=== PATIENT | male | born 1935 | race Caucasian/White ===

== ENCOUNTER 2017-09-02 09:02 | Inpatient (IN) | payer MEDICARE, MEDICAID ==
[~2017-09-02] VITALS: Ht 172.7 cm; Wt 78.8 kg
[~2017-09-02 09:02] MED LIST: ACET-461 PO; BISM262O27 PO; FURO40TA4 PO; LISI-596 PO; MELO-195 PO; METO-272 PO; MULT-974 PO
--- OUTSIDE RECORDS SUMMARY | 2017-09-02 09:08 | XMS REPORT | Continuity of Care Document ---
Author Author [facility] Organization [facility] Address Unknown Phone Unavailable Allergies Active Description Code Type Severity Reaction Onset Reported/Identified Relationship to Patient Clinical Status Yes No Known Drug Allergies [id number] Drug Allergy Unknown N/A 10/23/2010 Medications There is no data. Problems Date Dx Coded Attending Type Code Diagnosis Diagnosed By 01/13/2012 Ot 719.45 01/13/2012 Ot 808.0 01/13/2012 Ot E000.8 01/13/2012 Ot E849.6 01/13/2012 Ot E888.9 08/26/2014 Ot 211.3 08/26/2014 Ot 562.10 08/26/2014 Ot V67.09 08/26/2014 Ot 808.0 08/26/2014 Ot E000.8 08/29/2014 Ot 008.8 08/29/2014 Ot 276.51 08/29/2014 Ot 276.7 08/29/2014 Ot 287.5 08/29/2014 Ot 333.1 08/29/2014 Ot 401.9 08/29/2014 Ot 584.9 08/29/2014 Ot E932.0 08/29/2014 Ot V15.82 08/29/2014 Ot 008.8 08/29/2014 Ot 276.51 08/29/2014 Ot 276.7 08/29/2014 Ot 287.5 08/29/2014 Ot 333.1 08/29/2014 Ot 401.9 08/29/2014 Ot 584.9 08/29/2014 Ot E932.0 08/29/2014 Ot V15.82 08/29/2014 Ot 008.8 08/29/2014 Ot 276.51 08/29/2014 Ot 276.7 08/29/2014 Ot 287.5 08/29/2014 Ot 333.1 08/29/2014 Ot 401.9 08/29/2014 Ot 584.9 08/29/2014 Ot E932.0 08/29/2014 Ot V15.82 08/29/2014 Ot 008.8 08/29/2014 Ot 276.51 08/29/2014 Ot 276.7 08/29/2014 Ot 287.5 08/29/2014 Ot 333.1 08/29/2014 Ot 401.9 08/29/2014 Ot 584.9 08/29/2014 Ot E932.0 08/29/2014 Ot V15.82 10/04/2014 MANUEL PALOMINO MD Ot 401.9 10/04/2014 MANUEL PALOMINO MD Ot 415.19 10/04/2014 MANUEL PALOMINO MD Ot 786.09 10/04/2014 MANUEL PALOMINO MD Ot 786.59 10/04/2014 MANUEL PALOMINO MD Ot V58.69 Procedures There is no data. Results There is no data. Encounters ACCT No. Visit Date/Time Discharge Status Pt. Type Provider Facility Loc./Unit Complaint [id number] 10/04/2014 09:11:00 10/04/2014 12:51:00 DIS Emergency MANUEL PALOMINO MD [facility] [id number] 08/26/2014 11:37:00 Document Registration [id number] 01/13/2012 11:10:00 Document Registration [id number] 01/13/2012 10:14:00 Document Registration [id number] 10/23/2010 06:49:00 Document Registration
[2017-09-02] MEDS ORDERED: TRAM50TA2 PO (09:16)
[2017-09-02] MEDS ORDERED: FURO40TA4 PO (09:16)
[2017-09-02] MEDS ORDERED: APIX5TAB PO (09:16)
[2017-09-02] MEDS ORDERED: POTA8CAP9 PO (09:16)
[2017-09-02] MEDS ORDERED: METO-370 PO (09:16)
[2017-09-02 10:12] LABS: BASOPHILS % (AUTO) 0 % (0-10); EOSINOPHILS % (AUTO) 0 % (0-10); HEMATOCRIT 44 % (40-54); HEMOGLOBIN 15.2 G/DL (13.3-17.7); LYMPHOCYTES # (AUTO) 0.5 X 10^3 (1.0-4.0); LYMPHOCYTES % (AUTO) 4 % (12-44); MEAN CORPUSCULAR HEMOGLOBIN 31 PG (25-34); MEAN CORPUSCULAR HGB CONC 35 G/DL (32-36); MEAN CORPUSCULAR VOLUME 90 FL (80-99); MEAN PLATELET VOLUME 11.4 FL (7.4-10.4); MONOCYTES # (AUTO) 0.9 X 10^3 (0.0-1.0); MONOCYTES % (AUTO) 8 % (0-12); NEUTROPHILS # (AUTO) 10.9 X 10^3 (1.8-7.8); NEUTROPHILS % (AUTO) 88 % (42-75); PLATELET COUNT 171 10^3/uL (130-400); RED BLOOD COUNT 4.85 10^6/uL (4.35-5.85); RED CELL DISTRIBUTION WIDTH 14.4 % (10.0-14.5); WHITE BLOOD COUNT 12.3 10^3/uL (4.3-11.0)
[2017-09-02 10:30] LABS: ALANINE AMINOTRANSFERASE 16 U/L (0-55); ALBUMIN 3.7 GM/DL (3.2-4.5); ALKALINE PHOSPHATASE 80 U/L (40-136); BILIRUBIN,TOTAL 1.2 MG/DL (0.1-1.0); BUN/CREATININE RATIO 23; CALCIUM 9.5 MG/DL (8.5-10.1); CARBON DIOXIDE 22 MMOL/L (21-32); CHLORIDE 106 MMOL/L (98-107); CREATININE SERUM 1.02 MG/DL (0.60-1.30); GFR ESTIMATED > 60; GLUCOSE 95 MG/DL (70-105); MAGNESIUM 2.2 MG/DL (1.8-2.4); POTASSIUM 3.7 MMOL/L (3.6-5.0); SODIUM 138 MMOL/L (135-145); TOTAL PROTEIN 7.3 GM/DL (6.4-8.2)
[2017-09-02 10:32] LABS: BAND NEUTROPHILS 0 %; LYMPHOCYTES % (MANUAL) 3 %; MONOCYTES % (MANUAL) 8 %; NEUTROPHILS % (MANUAL) 89 %
[2017-09-02 10:33] LABS: BASOPHILS % (MANUAL) 0 %; EOSINOPHILS % (MANUAL) 0 %; RBC MORPH NORMAL
[2017-09-02] MEDS ORDERED: NS IV 1000 ML 1,000 ML IV ONE (10:58)
--- NOTE | 2017-09-02 11:03 | Diagnostic Imaging Report ---
INDICATION: Right forearm swelling AP and lateral views of the right forearm are obtained. No fracture or acute bony abnormality is seen. There are mild degenerative changes of the elbow joint. There is no overt lytic or blastic lesion. IMPRESSION: No acute abnormality of the right forearm. Dictated by: Dictated on workstation # [id number]
--- NOTE | 2017-09-02 11:10 | Diagnostic Imaging Report ---
INDICATION: Right hand swelling 3 views of the right hand show no fracture, dislocation or other acute abnormalities. There is soft tissue swelling of the hand. There are no radiopaque foreign objects. IMPRESSION: Soft tissue swelling. There is no fracture or dislocation. Dictated by: Dictated on workstation # [id number]
[2017-09-02] MEDS ORDERED: CLINDAMYCIN 900 MG/50 ML IVPB 50 ML IV SCH (12:00)
--- NOTE | 2017-09-02 12:17 | ED General ---
General Chief Complaint: Upper Extremity Stated Complaint: WRIST SWOLLEN Nursing Triage Note: TO ED PER W/C C/O SWELLING IN R HAND. Nursing Sepsis Screen: No Definite Risk Source of Information: Patient Exam Limitations: No Limitations History of Present Illness Date Seen by Provider: Sep 02, 2017 Time Seen by Provider: 09:03 Initial Comments This 82-year-old gentleman presents to the emergency room with complaints of right hand pain and swelling. This has been ongoing since Friday. Patient was scratched by his cat proximal to the affected area prior to the symptoms. Patient has no history of gout. Range of motion is extremely limited and is rather uncomfortable. He has not been eating or drinking well for the past 2 days and his urine is dark. He presents with a care provider who is a friend and also his DPOA. He notes that his lower extremities have more color change than usual and are cooler than usual as well. His care provider thinks he may be dehydrated. He has had no fever. Allergies and Home Medications Allergies Coded Allergies: No Known Drug Allergies (Unverified , 09/02/17) Home Medications Apixaban 5 Mg Tablet, 5 MG PO BID, (Reported) Furosemide 40 Mg Tablet, 40 MG PO DAILY, (Reported) Metoprolol Succinate 50 Mg Tab.er.24h, 50 MG PO BID, (Reported) Potassium Chloride 8 Meq Capsule.er, 16 MEQ PO DAILY, (Reported) TAKES 2 (8 MEQ) CAPSULES Tramadol HCl 50 Mg Tablet, 50 MG PO Q6H PRN for PAIN-MODERATE, (Reported) Constitutional: no symptoms reported EENTM: no symptoms reported Respiratory: no symptoms reported Cardiovascular: see HPI Gastrointestinal: see HPI Genitourinary: no symptoms reported Musculoskeletal: see HPI Skin: see HPI Psychiatric/Neurological: No Symptoms Reported Hematologic/Lymphatic: No Symptoms Reported Immunological/Allergic: no symptoms reported Past Usnokkm-Heotwr-Kdqaqu Hx Patient Social History Alcohol Use: Occasionally Uses Recreational Drug Use: No Smoking Status: Former Smoker Recent Foreign Travel: No Contact w/Someone Who Travel: No Recent Infectious Disease Expo: No Immunizations Up To Date Date of Pneumonia Vaccine: Aug 26, 2004 Date of Influenza Vaccine: Apr 25, 2014 Surgeries History of Surgeries: Yes Surgeries: Orthopedic Respiratory History of Respiratory Disorde: Yes Respiratory Disorders: Pulmonary Embolism Cardiovascular History of Cardiac Disorders: Yes Cardiac Disorders: Hypertension, Peripheral Vascular Neurological History of Neurological Disord: Yes (essential tremor) Reproductive System Hx Reproductive Disorders: No Gastrointestinal History of Gastrointestinal Di: Yes Gastrointestinal Disorders: Chronic Diarrhea, Polyps Musculoskeletal History of Musculoskeletal Dis: Yes (congenital hip deformity) Endocrine History of Endocrine Disorders: No Cancer History of Cancer: No Psychosocial History of Psychiatric Problem: No Integumentary History of Skin or Integumenta: No Blood Transfusions History of Blood Disorders: No Adverse Reaction to a Blood Tr: No Family Medical History Significant Family History: Heart Disease, COPD Family Medial History: FH: COPD (chronic obstructive pulmonary disease) 19 MOTHER G8 SISTER Physical Exam Vital Signs Vital Signs - First Documented 09/02/17 09:05 Temp 97.9 Pulse 76 Resp 18 B/P (MAP) 141/82 (101) Pulse Ox 98 Capillary Refill : Less Than 3 Seconds General Appearance: No Apparent Distress, WD/WN HEENT: PERRL/EOMI, Normal ENT Inspection, Other (oropharynx dry) Respiratory: Lungs Clear, Normal Breath Sounds, No Accessory Muscle Use, No Respiratory Distress Cardiovascular: Regular Rate, Rhythm, No Murmur, Other (lower extremities have dusky color change and pedal pulses are not palpable due to edema. Capillary refill is less than 5 seconds in the toes bilaterally and he retains sensation and movement.) Gastrointestinal: Normal Bowel Sounds, Non Tender, Soft Extremity: Normal Inspection, Pedal Edema (pitting edema equal bilaterally.), Other (right hand is warm, erythematous, swollen and tender to touch. 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 On his usual.) Skin: Warm/Dry, Other (see above) Focused Exam Evaluation Lactate Level Laboratory Tests 09/02/17 12:15: Lactic Acid Level 1.72 Lactic Acid Level Progress/Results/Core Measures Suspected Sepsis Recent Fever Within 48 Hours: No Infection Criteria Present: None New/Unexplained Altered Menta: No Sepsis Screen: No Definite Risk Sepsis Diagnosis: SIRS Temperature:97.9 Pulse: 76 Respiratory Rate: 18 Laboratory Tests 09/02/17 10:03: White Blood Count 12.3H Blood Pressure 141 /82 Mean: 101 Laboratory Tests 09/02/17 12:15: Lactic Acid Level 1.72 Laboratory Tests 09/02/17 10:03: Creatinine 1.02, Platelet Count 171, Total Bilirubin 1.2H Results/Orders Lab Results Laboratory Tests Test 09/02/17 10:03 09/02/17 12:15 Range/Units White Blood Count 12.3 H 4.3-11.0 10^3/uL Red Blood Count 4.85 4.35-5.85 10^6/uL Hemoglobin 15.2 13.3-17.7 G/DL Hematocrit 44 40-54 % Mean Corpuscular Volume 90 80-99 FL Mean Corpuscular Hemoglobin 31 25-34 PG Mean Corpuscular Hemoglobin Concent 35 32-36 G/DL Red Cell Distribution Width 14.4 10.0-14.5 % Platelet Count 171 130-400 10^3/uL Mean Platelet Volume 11.4 H 7.4-10.4 FL Neutrophils (%) (Auto) 88 H 42-75 % Lymphocytes (%) (Auto) 4 L 12-44 % Monocytes (%) (Auto) 8 0-12 % Eosinophils (%) (Auto) 0 0-10 % Basophils (%) (Auto) 0 0-10 % Neutrophils # (Auto) 10.9 H 1.8-7.8 X 10^3 Lymphocytes # (Auto) 0.5 L 1.0-4.0 X 10^3 Monocytes # (Auto) 0.9 0.0-1.0 X 10^3 Eosinophils # (Auto) 0.0 0.0-0.3 10^3/uL Basophils # (Auto) 0.0 0.0-0.1 10^3/uL Neutrophils % (Manual) 89 % Lymphocytes % (Manual) 3 % Monocytes % (Manual) 8 % Eosinophils % (Manual) 0 % Basophils % (Manual) 0 % Band Neutrophils 0 % Blood Morphology Comment NORMAL Sodium Level 138 135-145 MMOL/L Potassium Level 3.7 3.6-5.0 MMOL/L Chloride Level 106 98-107 MMOL/L Carbon Dioxide Level 22 21-32 MMOL/L Anion Gap 10 5-14 MMOL/L Blood Urea Nitrogen 23 H 7-18 MG/DL Creatinine 1.02 0.60-1.30 MG/DL Estimat Glomerular Filtration Rate > 60 BUN/Creatinine Ratio 23 Glucose Level 95 70-105 MG/DL Uric Acid 10.6 H 2.6-7.2 MG/DL Calcium Level 9.5 8.5-10.1 MG/DL Magnesium Level 2.2 1.8-2.4 MG/DL Total Bilirubin 1.2 H 0.1-1.0 MG/DL Aspartate Amino Transf (AST/SGOT) 25 5-34 U/L Alanine Aminotransferase (ALT/SGPT) 16 0-55 U/L Alkaline Phosphatase 80 40-136 U/L C-Reactive Protein High Sensitivity 25.10 H 0.00-0.50 MG/DL Total Protein 7.3 6.4-8.2 GM/DL Albumin 3.7 3.2-4.5 GM/DL Lactic Acid Level 1.72 0.50-2.00 MMOL/L My Orders Orders - MANUEL PALOMINO MD Cbc With Automated Diff (09/02/17 09:39) Comprehensive Metabolic Panel (09/02/17 09:39) Hs C Reactive Protein (09/02/17 09:39) Magnesium (09/02/17 09:39) Ua Culture If Indicated (09/02/17 09:39) Saline Lock/Iv-Start (09/02/17 09:39) Forearm, Right, 2 Views (09/02/17 09:39) Hand, Right, 3 Views (09/02/17 09:39) Manual Differential (09/02/17 10:03) Ns Iv 1000 Ml (Sodium Chloride 0.9%) (09/02/17 10:58) Uric Acid (09/02/17 11:49) Blood Culture (09/02/17 11:51) Lactic Acid Analyzer (09/02/17 11:51) Clindamycin 900 Mg/50 Ml Ivpb (Cleocin P (09/02/17 12:00) Colchicine Tablet (Colcrys Tablet) (09/02/17 12:30) Methylprednisolone Sod Succ (Solu-Medrol (09/02/17 13:30) Medications Given in ED Vital Signs/I&O Vital Sign - Last 12Hours 09/03/17 09/03/17 09/03/17 03:35 08:00 12:00 Temp 97.2 98.8 98.4 Pulse 85 60 60 Resp 16 18 16 B/P (MAP) 109/62 (78) 144/69 (94) 142/63 (89) Pulse Ox 95 92 93 O2 Delivery Room Air Room Air Room Air Capillary Refill : Less Than 3 Seconds Blood Pressure Mean: 101 Progress Note #1: Progress Note It is unclear if patient has pain and swelling of the right hand secondary to gout or cellulitis or both. He did have a break in the skin where a cat scratched him prior to his symptoms developing. Clindamycin is being administered by IV route after blood cultures are drawn. Uric acid was high and colchicine is being given as well. I spoke with Dr. Quintana who prefers to admit the patient as he is fairly frail and overall not feeling well. He will see the patient later today. Patient was allowed to take his morning medications. Progress Note #2: Progress Note Dr. Quintana personally presented to the emergency room to evaluate this patient. Diagnostic Imaging Diagonstic Imaging: Xray Comments NAME: RICO CERVANTES [facility] REC#: [id number] PT STATUS: ADM IN : 1935 PHYSICIAN: MANUEL PALOMINO MD ADMIT DATE: 09/02/17 Signed Date of Exam: 09/02/17 HAND, RIGHT, 3 VIEWS INDICATION: Right hand swelling 3 views of the right hand show no fracture, dislocation or other acute abnormalities. There is soft tissue swelling of the hand. There are no radiopaque foreign objects. IMPRESSION: Soft tissue swelling. There is no fracture or dislocation. Dictated by: Dictated on workstation # [id number] Dict: 09/02/17 1105 Trans: 09/02/171738 Interpreted by: STEVIE PACK MD Electronically signed by: STEVIE PACK MD 09/02/171738 Diagonstic Imaging: Xray Plain Films/CT/US/NM/MRI: forearm Comments NAME: [facility]ANTES[facility] REC#: [id number] PT STATUS: ADM IN : 1935 PHYSICIAN: MANUEL PALOMINO MD ADMIT DATE: 09/02/17 Signed Date of Exam: 09/02/17 FOREARM, RIGHT, 2 VIEWS INDICATION: Right forearm swelling AP and lateral views of the right forearm are obtained. No fracture or acute bony abnormality is seen. There are mild degenerative changes of the elbow joint. There is no overt lytic or blastic lesion. IMPRESSION: No acute abnormality of the right forearm. Dictated by: Dictated on workstation # [id number] Dict: 09/02/17 1101 Trans: 09/02/171708 Interpreted by: CHER ARMENTA MD Electronically signed by: CHER ARMENTA MD 09/02/171708 Departure Communication (Admissions) Time/Spoke to Admitting Phy: 11:[address] Quintana Impression Impression: Primary Impression: Right hand pain Additional Impressions: Swelling of right hand Poor appetite Poor fluid intake Gout attack Qualified Codes: M10.9 - Gout, unspecified Disposition: 09 ADMITTED INPATIENT Condition: Improved Admissions Decision to Admit Reason: Admit from ER (General) Decision to Admit/Date: Sep 02, 2017 Time/Decision to Admit Time: 10:50 Departure-Patient Inst. Referrals: TATIANA QUINTANA MD (PCP/Family) Primary Care Physician MANUEL PALOMINO MD Sep 02, 2017 12:17
[2017-09-02] MEDS ORDERED: COLCHICINE 0.6 MG (COLCRYS) TABLET PO ONE (12:30)
--- OUTSIDE RECORDS SUMMARY | 2017-09-02 12:53 | XMS REPORT | Continuity of Care Document ---
Author Author [facility] Organization [facility] Address Unknown Phone Unavailable Allergies Active Description Code Type Severity Reaction Onset Reported/Identified Relationship to Patient Clinical Status Yes No Known Drug Allergies [id number] Drug Allergy Unknown N/A 10/23/2010 Medications There [...] 10/04/2014 MANUEL PALOMINO MD Ot 401.9 10/04/2014 GEORGETTE CONWAY, MANUEL Driver Ot 415.19 10/04/2014 GEORGETTE CONWAY, MANUEL Driver Ot 786.09 10/04/2014 GEORGETTE CONWAY, MANUEL Driver Ot 786.59 10/04/2014 GEORGETTE CONWAY, MANUEL Driver Ot V58.69 Procedures There is no data. Results Test Result Range Complete blood count (CBC) with automated white blood cell (WBC) differential - 09/02/17 10:03 Blood leukocytes automated count (number/volume) 12.3 10*3/uL 4.3-11.0 Blood erythrocytes automated count (number/volume) 4.85 10*6/uL 4.35-5.85 Venous blood hemoglobin measurement (mass/volume) 15.2 g/dL 13.3-17.7 Blood hematocrit (volume fraction) 44 % 40-54 Automated erythrocyte mean corpuscular volume 90 [foz_us] 80-99 Automated erythrocyte mean corpuscular hemoglobin (mass per erythrocyte) 31 pg 25-34 Automated erythrocyte mean corpuscular hemoglobin concentration measurement ( mass/volume) 35 g/dL 32-36 Automated erythrocyte distribution width ratio 14.4 % 10.0-14.5 Automated blood platelet count (count/volume) 171 10*3/uL 130-400 Automated blood platelet mean volume measurement 11.4 [foz_us] 7.4-10.4 Automated blood neutrophils/100 leukocytes 88 % 42-75 Automated blood lymphocytes/100 leukocytes 4 % 12-44 Blood monocytes/100 leukocytes 8 % 0-12 Automated blood eosinophils/100 leukocytes 0 % 0-10 Automated blood basophils/100 leukocytes 0 % 0-10 Blood neutrophils automated count (number/volume) 10.9 10*3 1.8-7.8 Blood lymphocytes automated count (number/volume) 0.5 10*3 1.0-4.0 Blood monocytes automated count (number/volume) 0.9 10*3 0.0-1.0 Automated eosinophil count 0.0 10*3/uL 0.0-0.3 Automated blood basophil count (count/volume) 0.0 10*3/uL 0.0-0.1 Comprehensive metabolic panel - 09/02/17 10:03 Serum or plasma sodium measurement (moles/volume) 138 mmol/L 135-145 Serum or plasma potassium measurement (moles/volume) 3.7 mmol/L 3.6-5.0 Serum or plasma chloride measurement (moles/volume) 106 mmol/L 98-107 Carbon dioxide 22 mmol/L 21-32 Serum or plasma anion gap determination (moles/volume) 10 mmol/L 5-14 Serum or plasma urea nitrogen measurement (mass/volume) 23 mg/dL 7-18 Serum or plasma creatinine measurement (mass/volume) 1.02 mg/dL 0.60-1.30 Serum or plasma urea nitrogen/creatinine mass ratio 23 NRG Serum or plasma creatinine measurement with calculation of estimated glomerular filtration rate > NRG Serum or plasma glucose measurement (mass/volume) 95 mg/dL 70-105 Serum or plasma calcium measurement (mass/volume) 9.5 mg/dL 8.5-10.1 Serum or plasma total bilirubin measurement (mass/volume) 1.2 mg/dL 0.1-1.0 Serum or plasma alkaline phosphatase measurement (enzymatic activity/volume) 80 U/L 40-136 Serum or plasma aspartate aminotransferase measurement (enzymatic activity/ volume) 25 U/L 5-34 Serum or plasma alanine aminotransferase measurement (enzymatic activity/volume ) 16 U/L 0-55 Serum or plasma protein measurement (mass/volume) 7.3 g/dL 6.4-8.2 Serum or plasma albumin measurement (mass/volume) 3.7 g/dL 3.2-4.5 Magnesium - 09/02/17 10:03 Magnesium 2.2 mg/dL 1.8-2.4 Blood manual differential performed detection - 09/02/17 10:03 Blood monocytes/100 leukocytes 8 % NRG Manual blood segmented neutrophils/100 leukocytes 89 % NRG Blood band neutrophils/100 leukocytes 0 % NRG Manual blood lymphocytes/100 leukocytes 3 % NRG Manual eosinophils/100 leukocytes in nose 0 % NRG Manual blood basophils/100 leukocytes 0 % NRG Blood erythrocyte morphology finding identification NORMAL NRG Serum or plasma C reactive protein measurement (mass/volume) - 09/02/17 10:03 Serum or plasma C reactive protein measurement (mass/volume) 25.10 mg/dL 0.00-0.50 Serum or plasma uric acid measurement (mass/volume) - 09/02/17 10:03 Serum or plasma uric acid measurement (mass/volume) 10.6 mg/dL 2.6-7.2 Blood lactic acid measurement (moles/volume) - 09/02/17 12:15 Blood lactic acid measurement (moles/volume) 1.72 mmol/L 0.50-2.00 Encounters ACCT No. Visit Date/Time Discharge Status Pt. Type Provider Facility Loc./Unit Complaint [id number] 10/04/2014 09:11:00 10/04/2014 12:51:00 DIS Emergency GEORGETTE CONWAY, MANUEL Driver [facility] [id number] 09/02/2017 10:16:00 Document Registration [id number] 08/26/2014 11:37:00 Document Registration [id number] 01/13/2012 11:10:00 Document Registration [id number] 01/13/2012 10:14:00 Document Registration [id number] 10/23/2010 06:49:00 Document Registration
[2017-09-02 13:30] VITALS: BP 160/76
[2017-09-02] MEDS ORDERED: methylPREDNISolone 125 MG (Solu-MEDROL) VIAL IVP ONE (13:30)
--- NOTE | 2017-09-02 13:34 | History & Physical-Hospitalist ---
HPI History of Present Illness: HPI/Chief Complaint Mr. Patel is a frail 82-year-old white male who reports waking up noting some right sided wrist swelling and pain. While he states that he had been scratched by his catheter it was 3 weeks ago and proximal to the initial area of swelling about the right wrist. He does have an essential tremor but denies Reiger's. He reports poor energy without night sweats or fevers. His by mouth intake is been poor over the past 48 hours and he has continued his diuretic therapy that he chronically takes for venous insufficiency of the lower extremities and history of hypertension. He does not recall any past history for gout. I do not recall any past history for cellulitis. Past medical history is significant for ulnar embolism in 2015. Because of the fact that he is a frail sedentary with chronic significant venous insufficiency that require bilateral compression in the form of Bartolome wrap's put on by a friend daily we have opted to keep monitoring chronic anticoagulation as he is high risk for recurrent venous thromboembolic events. 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 For anything outside the home he is wheelchair-bound. He has a friend who does all of the shopping. Without this assistance he would require correction placement. Date Seen 09/02/17 Time Seen by Provider: 10:00 Attending Physician Marvel Juan MD PCP Marvel Juan MD Referring Physician Date of Admission Sep 02, 2017 at 12:19 Home Medications & Allergies Home Medications Reviewed patient Home Medication Reconciliation Form Allergies Allergies Coded Allergies No Known Drug Allergies (Unverified10/23/10) Past Bgsltin-Guzmhv-Xjubxo Hx Patient Social History Alcohol Use: Occasionally Uses Recreational Drug Use: No Smoking Status: Former Smoker Recent Foreign Travel: No Contact w/other who traveled: No Recent Infectious Disease Expo: No Immunizations Up To Date Date of Pneumonia Vaccine: Aug 26, 2004 Date of Influenza Vaccine: Apr 25, 2014 Surgeries Yes Orthopedic Respiratory No Cardiovascular Yes Hypertension Neurological Yes (essential tremor) Reproductive System Hx Reproductive Disorders: No Gastrointestinal Yes Chronic Diarrhea, Polyps Musculoskeletal No Endocrine History of Endocrine Disorders: No Cancer No Psychosocial History of Psychiatric Problem: No Integumentary History of Skin or Integumenta: No Blood Transfusions History of Blood Disorders: No Adverse Reaction to a Blood Tr: No Family Medical History Significant Family History: Heart Disease, COPD Family Hx: FH: COPD (chronic obstructive pulmonary disease) 19 MOTHER G8 SISTER Review of Systems Constitutional: No no symptoms reported, see HPI, No chills, No diaphoresis, No dizziness, No fever, malaise, weakness, No weight gain, No weight loss Respiratory: No no symptoms reported, No see HPI, No cough, dyspnea on exertion (About baseline per patient's report), No hemoptysis, No orthopnea, No phlegm, No short of breath, No wheezing Cardiovascular: No chest pain, edema (About baseline), No Hx of Intervention, No palpitations, No syncope, No vascular heart diseas, No other Physical Exam Physical Exam Vital Signs Vital Signs - First Documented 09/02/17 09:05 Temp 97.9 Pulse 76 Resp 18 B/P (MAP) 141/82 (101) Pulse Ox 98 Capillary Refill : Less Than 3 Seconds General Appearance: Anxious, Chronically ill HEENT: Pharynx Normal, Other (Poor dentition) Neck: Non Tender, Limited Range of Motion, Other (No JVD adenopathy or bruits.) Respiratory: Chest Non Tender, Lungs Clear, Normal Breath Sounds, No Accessory Muscle Use, No Respiratory Distress, Other (Severe kyphoscoliosis known to be long-standing) Cardiovascular: Regular Rate, Rhythm, No Edema, No Gallop, No JVD, No Murmur, Normal Peripheral Pulses Gastrointestinal: Normal Bowel Sounds, No Organomegaly, No Pulsatile Mass, Non Tender, Soft Extremity: Non Tender, No Calf Tenderness, Other (Feet violaceous to the mid tibia with chronic venous insufficiency changes. There is 2+ edema to the mid tibia I'm unable to appreciate pulses sensation is intact and no pain is reported.) Results Results/Procedures Lab Laboratory Tests 09/02/17 10:03 Assessment/Plan Admission Diagnosis 1. Severe pain and swelling and warmth about the right wrist and involving the hand to the mid forearm level with leukocytosis and significant elevated uric acid level 10.6. Stream onset with these findings is most suggestive of acute gout although cellulitis or septic arthritis of the right wrist are still clearly in the differential diagnosis. Clindamycin has been initiated to cover the potential for infection we'll give 1 dose of IV Solu-Medrol and reevaluate in the morning. 2. Dehydration secondary to number 1 and diuretic therapy will hold Lasix. 3. History of pulmonary embolism Eliquis will suffice for DVT prophylaxis. SCDs are relatively contraindicated as I am concerned about vascular compromise of his lower extremities. 4. Suspect that lower extremity color change and coolness or secondary to venous insufficiency with high peripheral vascular resistance aggravated by dehydration. Arterial ischemia is little less likely considering there is no pain with intact sensation. If there is not improvement will need to look into arterial Doppler studies. 5. History of hypertension with exacerbation of renal insufficiency due to hypotension when the patient was on BARTOLOME inhibitor therapy. As of late he is only been on Lasix and potassium replacement. Will hold for now but likely have to reinitiate for discharge. If there is not significant improvement in swelling we'll have to consider diagnostic tap. Due to the pain that this would cause in addition to increased bleeding risk in individual on anticoagulation therapy will hold arthrocentesis at this time. We'll reevaluate in the morning. Admission Status: Inpatient Order (span 2 midnights) Assessment and Plan See admission diagnosis MARVEL JUAN MD Sep 02, 2017 13:33
[2017-09-02] MEDS ORDERED: ACETAMINOPHEN 500 MG TAB (TYLENOL) PO PRN (14:00)
[2017-09-02] MEDS ORDERED: CATHETER FLUSH 10 ML SYR IV PRN (14:30)
[2017-09-02] MEDS: NS IV 1000 ML 1,000 ML IV SCH (14:55)
[2017-09-02 15:33] VITALS: BP 160/77
[2017-09-02 19:40] VITALS: BP 128/68
[2017-09-02] MEDS: APIXABAN 5 MG (ELIQUIS) TABLET PO SCH (20:12)
[2017-09-02] MEDS: meTOprolol TARTRATE 50 MG (LOPRESSOR) TAB PO SCH (20:13)
[2017-09-02] MEDS: CLINDAMYCIN 900 MG/50 ML IVPB 50 ML IV SCH (21:27)
[2017-09-02] MEDS: CATHETER FLUSH 10 ML SYR IV SCH (21:27)
[2017-09-03] VITALS (7 sets, daily range): BP systolic 97–144; BP diastolic 54–69
[2017-09-03] MEDS: NS IV 1000 ML 1,000 ML IV SCH ×3 (00:44→18:20)
[2017-09-03] MEDS: CATHETER FLUSH 10 ML SYR IV SCH ×3 (05:05→21:08)
[2017-09-03] MEDS: CLINDAMYCIN 900 MG/50 ML IVPB 50 ML IV SCH ×3 (05:05→21:08)
--- NOTE | 2017-09-03 08:34 | Progress Note-Hospitalist ---
Subjective HPI/CC On Admission Date Seen by Provider: Sep 03, 2017 Time Seen by Provider: 08:00 Mr. Patel is a frail 82-year-old white male who reports waking up noting some right sided wrist swelling and pain. While he states that he had been scratched by his catheter it was 3 weeks ago and proximal to the initial area of swelling about the right wrist. He does have an essential tremor but denies Reiger's. He reports poor energy without night sweats or fevers. His by mouth intake is been poor over the past 48 hours and he has continued his diuretic therapy that he chronically takes for venous insufficiency of the lower extremities and history of hypertension. He does not recall any past history for gout. I do not recall any past history for cellulitis. Past medical history is significant for ulnar embolism in 2015. Because of the fact that he is a frail sedentary with chronic significant venous insufficiency that require bilateral compression in the form of Bartolome wrap's put on by a friend daily we have opted to keep monitoring chronic anticoagulation as he is high risk for recurrent venous thromboembolic events. 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 For anything outside the home he is wheelchair-bound. He has a friend who does all of the shopping. Without this assistance he would require correction placement. Subjective/Events-last exam Patient feeling much better with decreased right wrist pain and swelling. He denies lower extremity pain chills fever or night sweats. His appetite is improved and he denies nausea diarrhea or abdominal pain. Objective Exam Vital Signs Vital Signs Date Time Temp Pulse Resp B/P (MAP) Pulse Ox O2 Delivery O2 Flow Rate FiO2 09/02/17 09:05 97.9 76 18 141/82 (101) 98 09/02/17 13:30 Room Air Capillary Refill : Less Than 3 Seconds General Appearance: No Apparent Distress, Chronically ill Respiratory: Chest Non Tender, Lungs Clear, Normal Breath Sounds, No Accessory Muscle Use, No Respiratory Distress Cardiovascular: Regular Rate, Rhythm, No Edema, No Gallop, No JVD, No Murmur, Normal Peripheral Pulses Extremity: Other (Pedal edema has decreased extremities are now warm unable to appreciate dorsalis pedis pulse on the left in the posterior tibial pulse on the right. The right wrist and forearm erythema significantly improved with decreased swelling.) Results/Procedures Lab Laboratory Tests 09/02/17 10:03 Assessment/Plan Assessment and Plan Assess & Plan/Chief Complaint 1. The rapidity of improvement suggests that the gout involving the right wrist is more likely than cellulitis or septic joint. We'll give prednisone today and initiate allopurinol on discharge. We'll continue clindamycin. 2. Debility multifactorial we will consult PT for ambulation with walker today. 3. Essential tremor continue beta everett therapy for this as well as underlying hypertension. 4. Past pulmonary embolism continue L Garvey which suffices for DVT prophylaxis. 5. Chronic venous insufficiency lower extremities improvement and exam today does not suggest limb threatening peripheral vascular disease. TATIANA JUAN MD Sep 03, 2017 08:34
[2017-09-03] MEDS ORDERED: predniSONE 20 MG TAB PO NR (09:09)
[2017-09-03] MEDS: meTOprolol TARTRATE 50 MG (LOPRESSOR) TAB PO SCH ×2 (09:27→20:09)
[2017-09-03] MEDS: APIXABAN 5 MG (ELIQUIS) TABLET PO SCH ×2 (09:27→20:10)
--- NOTE | 2017-09-03 14:00 | Physical Therapy Evaluation ---
PT Evaluation-General Medical Diagnosis Admission Date Sep 02, 2017 at 12:20 Medical Diagnosis: Spinal stenosis, gout, debility Onset Date: Sep 02, 2017 Therapy Diagnosis Therapy Diagnosis: Debility, poor strength, activity tolerance, functional mobility Height/Weight Height (Feet): 5 Height (Inches): 8.00 Weight (Pounds): 173 Weight (Ounces): 10.0 Precautions Precautions/Isolations: Fall Prevention, Standard Precautions Weight Bear Status Right Lower Extremity: Right Full Weight Bearing Left Lower Extremity: Left Full Weight Bearing Referral Physician: Marvel Quintana MD Reason for Referral: Evaluation/Treatment Medical History Pertinent Medical History: HTN, Smoking (former) Additional Medical History Essential tremor, chronic diarrhea, polyps Current History Pt admitted to ER with wrist swelling and pain. Reviewed History: Yes Social History Home: Single Level Entry Into Home: Ramp PT Steps Into Home: 0 PT Steps Inside Home: 0 Prior/Core FIM Prior Level of Function Functional [place] Measure 0=Not Assessed/NA 4=Minimal Assistance 1=Total Assistance 5=Supervision or Setup 2=Maximal Assistance 6=Modified [place] 3=Moderate Assistance 7=Complete [place] Bed Mobility: 7 Transfers (B,C,W/C) (FIM): 6 Gait: 6 Locomotion: 6 Used FWW PT Evaluation-Current Subjective Pt is sitting in recliner pre eval with c/o pain in R wrist at 8/10 with no visual signs of distress. Pt agrees to PT. Pt/Family Goals [place] at home Objective Patient Orientation: Person, Place, Situation Attachments: IV ROM/Strength ROM Lower Extremities WFL jerrica Strength Lower Extremities Jerrica hip flexion and ankle DF: 2+/5 Jerrica hip add/abd, knee flexion/extension: 3/5 Integumentary/Posture Bowel Incontinence: Yes Neuromuscular (Tone, Coordination, Reflexes) NT Sensory Vision: Functional Hearing: Functional Sensation Right Lower Extremit: Intact Sensation Left Lower Extremity: Intact Transfers Functional [place] Measure 0=Not Assessed/NA 4=Minimal Assistance 1=Total Assistance 5=Supervision or Setup 2=Maximal Assistance 6=Modified [place] 3=Moderate Assistance 7=Complete [place] Transfers (B, C, W/C) (FIM): 2 Scootin Rollin Supine to/from Sit: 3 Sit to/from Stand: 2 SBA needed for most bed mobility, mod A required for sit to supine to manage BLE , max A required for sit to stand transfer. Gait Mode of Locomotion: Walk Anticipated Mode of Locomotion: Walk Gait (FIM): 1 Distance: 5 feet Gait Level of Assist: 4 Gait Persons Needed: 1 Gait Assistive Device: FWW Comments/Gait Description Pt leans heavily on the FWW and shuffles feet to ambulate with step-to gait pattern. Balance Sitting Static: Normal Sitting Dynamic: Normal Standing Static: Poor Standing Dynamic: Poor Treatment Pt performed functional activity, gait training. Assessment/Needs Pt demonstrates poor strength in BLE as well as poor functional mobility. Bed mobility mostly requires SBA. In order to address impairments, pt will benefit from formal PT services. Rehab Potential: Fair Post Rehab Potential-Barriers: Swelling and pain in right wrist Equipment Needs Raised toilet, bedside commode, shower chair PT Short Term Goals Short Term Goals Time Frame: Sep 10, 2017 Transfers (B,C,W/C) (FIM): 4 Gait (FIM): 1 Gait Distance Comment: 25 feet Gait Level of Assist: 4 Gait Assistive Device: FWW PT Plan Problem List Problem List: Activity Tolerance, Functional Strength, Safety, Balance, Gait, Transfer, Bed Mobility, ROM Treatment/Plan Treatment Plan: Continue Plan of Care Treatment Plan: Bed Mobility, Education, Functional Activity [place], Functional Strength, Gait, Safety, Therapeutic Exercise, Transfers Treatment Duration: Sep 10, 2017 Frequency: 6 times per week Estimated Hrs Per Day: .25 hour per day (15-30 min) Patient and/or Family Agrees t: Yes Safety Risks/Education Patient Education: Gait Training, Transfer Techniques, Correct Positioning, Safety Issues Teaching Recipient: Patient Teaching Methods: Demonstration, Discussion Response to Teaching: Unable to Return Demonstration, Reinforcement Needed Discharge Recommendations Plan Pt will perform bed mobility and transfer training, gait and balance training, strength and activity tolerance training, and education training in order to promote independence at home. Therapy D/C Recommendations: Home w/ Family Support, Jail (TCU/NH) Equpiment Recommendations-D/C: Shower Chair, Standard Bedside Commode, Toilet Riser Time/GCodes Time In: 1330 Time Out: 1350 Total Billed Treatment Time: 20 Total Billed Treatment 1 visit 20 min BHASKAR CARRERO PT Sep 03, 2017 13:59
[2017-09-04 00:36] VITALS: BP 114/69
[2017-09-04] MEDS: NS IV 1000 ML 1,000 ML IV SCH (04:01)
[2017-09-04 04:18] VITALS: BP 121/67
[2017-09-04] MEDS: CATHETER FLUSH 10 ML SYR IV SCH (06:02)
[2017-09-04] MEDS: CLINDAMYCIN 900 MG/50 ML IVPB 50 ML IV SCH (06:02)
[2017-09-04] MEDS ORDERED: predniSONE 20 MG TAB PO SCH (07:00)
[2017-09-04 08:00] VITALS: BP 148/74
[2017-09-04] MEDS ORDERED: ALLO100T PO (08:16)
[2017-09-04] MEDS ORDERED: PRD20T PO (08:16)
[2017-09-04] MEDS: meTOprolol TARTRATE 50 MG (LOPRESSOR) TAB PO SCH (08:26)
[2017-09-04] MEDS: APIXABAN 5 MG (ELIQUIS) TABLET PO SCH (08:26)
--- NOTE | 2017-09-04 08:42 | Discharge Summary-Hospitalist ---
Diagnosis/Chief Complaint Date of Admission Sep 02, 2017 at 12:20 Date of Discharge Discharge Date: Sep 04, 2017 Admission Diagnosis 1. Severe pain and swelling and warmth about the right wrist and involving the hand to the mid forearm level with leukocytosis and significant elevated uric acid level 10.6. Stream onset with these findings is most suggestive of acute gout although cellulitis or septic arthritis of the right wrist are still clearly in the differential diagnosis. Clindamycin has been initiated to cover the potential for infection we'll give 1 dose of IV Solu-Medrol and reevaluate in the morning. 2. Dehydration secondary to number 1 and diuretic therapy will hold Lasix. 3. History of pulmonary embolism Eliquis will suffice for DVT prophylaxis. SCDs are relatively contraindicated as I am concerned about vascular compromise of his lower extremities. 4. Suspect that lower extremity color change and coolness or secondary to venous insufficiency with high peripheral vascular resistance aggravated by dehydration. Arterial ischemia is little less likely considering there is no pain with intact sensation. If there is not improvement will need to look into arterial Doppler studies. 5. History of hypertension with exacerbation of renal insufficiency due to hypotension when the patient was on FRANCESCA inhibitor therapy. As of late he is only been on Lasix and potassium replacement. Will hold for now but likely have to reinitiate for discharge. If there is not significant improvement in swelling we'll have to consider diagnostic tap. Due to the pain that this would cause in addition to increased bleeding risk in individual on anticoagulation therapy will hold arthrocentesis at this time. We'll reevaluate in the morning. Discharge Diagnosis 1. The rapidity of improvement suggests that the gout involving the right wrist is more likely than cellulitis or septic joint. We'll give prednisone today and initiate allopurinol on discharge. We'll continue clindamycin. 2. Debility multifactorial we will consult PT for ambulation with walker today. 3. Essential tremor continue beta everett therapy for this as well as underlying hypertension. 4. Past pulmonary embolism continue eliquis which suffices for DVT prophylaxis. 5. Chronic venous insufficiency lower extremities improvement and exam today does not suggest limb threatening peripheral vascular disease. Discharge Summary Discharge Physical Examination Allergies: Coded Allergies: No Known Drug Allergies (Unverified , 09/02/17) Vitals & I&Os Vital Signs Date Time Temp Pulse Resp B/P (MAP) Pulse Ox O2 Delivery O2 Flow Rate FiO2 09/04/17 08:00 97.1 65 16 148/74 (98) 96 Room Air Hospital Course Mr. Patel is a frail 82-year-old white male who presented to the hospital with a 2 day history of rather abrupt onset of right upper extremity swelling centered around the wrist extending up the forearm. He had loss of appetite associated. He denied Reiger's but had questionable fever. The abrupt onset in his description in addition to her uric acid level of 10.7 suggested gout but infection/septic joint versus cellulitis cannot be ruled out. He was given a dose of Solu-Medrol as well as oral colchicine with the initiation of clindamycin. Within 48 hours all of the erythema had resolved in addition to a near complete resolution of swelling also highly suggesting gout and not underlying infection. For this reason he'll be discharged on another 5 days of prednisone and will initiate 100 mg of allopurinol after discussion of side effects namely rash at this develops he is to discontinue the medication and contact our office. We will be obtaining uric acid levels as well as liver function studies in the near future with an appointment to see me next week for early follow-up. He was discharged on 40 mg of prednisone for 5 days and 100 mg of allopurinol daily with dosage increases to follow. Labs (last 24 hrs) Microbiology 09/02/17 Blood Culture - Preliminary, Resulted No growth Discussion & Recommendations Discharge Planning: <30 minutes discharge planning Discharge Home Medications: Active Scripts Active Allopurinol 100 Mg Tablet 100 Mg PO DAILY 30 Days Prednisone 20 Mg Tab 40 Mg PO DAILY 5 Days Take 3 tabs(60mg)daily, decrease by 1/2 tab(10mg)daily. Reported Furosemide 40 Mg Tablet 40 Mg PO DAILY Eliquis (Apixaban) 5 Mg Tablet 5 Mg PO BID Tramadol HCl 50 Mg Tablet 50 Mg PO Q6H PRN Metoprolol Succinate 50 Mg Tab.er.24h 50 Mg PO BID Potassium Chloride 8 Meq Capsule.er 16 Meq PO DAILY TAKES 2 (8 MEQ) CAPSULES Instructions to patient/family Please see electronic discharge instructions given to patient. Copy Copies To 1: TATIANA JUAN MD, MARK D MD Sep 04, 2017 08:42
[2017-09-04 11:05] VITALS: BP 148/74
== END 2017-09-04 09:45 | disposition home or self-care (01) | DRG 554 ==
LOC: EDUNIT# 09:02 → ER 09:03 → 4TH 12:19 → UNDOADMOB 12:19 → 4TH 12:19 → OBSVTOIN 12:20 → INTOOBSV 12:20 → UNDODISIN 09-04 09:45
PROVIDERS: ADMIT Internal Medicine; ATTEND Internal Medicine
DX: M10.9 Gout, unspecified (principal); E86.0 Dehydration; I10 Essential (primary) hypertension; I87.2 Venous insufficiency (chronic) (peripheral); M48.061 Spinal stenosis, lumbar region without neurogenic claudication; G25.0 Essential tremor; Z66 Do not resuscitate; Z99.3 Dependence on wheelchair; Z86.711 Personal history of pulmonary embolism; Z79.01 Long term (current) use of anticoagulants; Z87.891 Personal history of nicotine dependence
CPT/HCPCS: 36415; 73090; 73130; 80053; 83605; 83735; 84550; 85007; 85027; 86141; 87040; 96361; 96365; 96375

== ENCOUNTER 2017-09-12 09:45 | Emergency (ER) | payer MEDICARE, MEDICAID ==
[~2017-09-12] VITALS: Ht 170.2 cm; Wt 77.1 kg
[~2017-09-12 09:45] MED LIST changes: +ALLO100T PO; +APIX5TAB PO; +METO-370 PO; +POTA8CAP9 PO; +PRD20T PO; +TRAM50TA2 PO
[2017-09-12] MEDS ORDERED: NS IV 1000 ML 1,000 ML IV SCH (09:57)
[2017-09-12 10:05] LABS: BASOPHILS % (AUTO) 0 % (0-10); EOSINOPHILS # (AUTO) 0.1 10^3/uL (0.0-0.3); EOSINOPHILS % (AUTO) 1 % (0-10); HEMATOCRIT 47 % (40-54); LYMPHOCYTES # (AUTO) 0.8 X 10^3 (1.0-4.0); LYMPHOCYTES % (AUTO) 6 % (12-44); MEAN CORPUSCULAR HEMOGLOBIN 31 PG (25-34); MEAN CORPUSCULAR HGB CONC 34 G/DL (32-36); MEAN CORPUSCULAR VOLUME 92 FL (80-99); MEAN PLATELET VOLUME 11.2 FL (7.4-10.4); MONOCYTES # (AUTO) 1.1 X 10^3 (0.0-1.0); MONOCYTES % (AUTO) 9 % (0-12); NEUTROPHILS % (AUTO) 84 % (42-75); PLATELET COUNT 220 10^3/uL (130-400); RED BLOOD COUNT 5.12 10^6/uL (4.35-5.85); RED CELL DISTRIBUTION WIDTH 15.4 % (10.0-14.5)
[2017-09-12] MEDS ORDERED: LIDOCAINE UROJET 2% GEL 10 ML PKG ONE (10:10)
--- NOTE | 2017-09-12 10:10 | ED General ---
General Stated Complaint: EDEMA Source of Information: Patient Exam Limitations: No Limitations History of Present Illness Date Seen by Provider: Sep 12, 2017 Time Seen by Provider: 09:45 Initial Comments Here with report of pain to his right arm and difficulty with walking. Patient lives at home alone but does have a person that checks in on him daily. Has been unable to get up the last 2 days due to pain in his arm and wrist. He thought that this might be gout but does admit that he had a CAT Bite near the area of concern and this may be the problem as well. Has not been able to take his meds today because he was unable to get up. He is soiled himself both the urine and an stool because he has been unable to get up for the last 24 hours. Complains of pain in the wrist area. There was discussion of long term placement for at least a short time and patient agrees to this as needed. Denies vomiting or diarrhea. Does complain of pain to the right wrist with significant redness. Complains of pain to the lower extremities which is chronic. Also has pain to the back side where skin breakdown is occurring. Timing/Duration: 4-5 Days, Getting Worse Severity: Moderate Associated Systoms: No Cough, No Fever/Chills, No Nausea/Vomiting, No Shortness of Air, Weakness Allergies and Home Medications Allergies Coded Allergies: No Known Drug Allergies (Unverified , 09/02/17) Home Medications Allopurinol 100 Mg Tablet, 100 MG PO DAILY Prescribed by: TATIANA JUAN on 09/04/17 0816 Apixaban 5 Mg Tablet, 5 MG PO BID, (Reported) Furosemide 40 Mg Tablet, 40 MG PO DAILY, (Reported) Metoprolol Succinate 50 Mg Tab.er.24h, 50 MG PO BID, (Reported) Potassium Chloride 8 Meq Capsule.er, 16 MEQ PO DAILY, (Reported) TAKES 2 (8 MEQ) CAPSULES Prednisone 20 Mg Tab, 40 MG PO DAILY Take 3 tabs(60mg)daily, decrease by 1/2 tab(10mg)daily. Prescribed by: TATIANA JUAN on 09/04/17 0816 Tramadol HCl 50 Mg Tablet, 50 MG PO Q6H PRN for PAIN-MODERATE, (Reported) Patient Home Medication List Home Medication List Reviewed: Yes Constitutional: see HPI, No chills, No fever, weakness EENTM: no symptoms reported Respiratory: no symptoms reported, No cough, No short of breath Cardiovascular: no symptoms reported Gastrointestinal: abdominal pain (generalized mild intermittent aching.), loss of appetite, No nausea, No vomiting Genitourinary: see HPI, No pain Musculoskeletal: joint pain, joint swelling, muscle pain, muscle stiffness Skin: change in color, lesions (pressure) Psychiatric/Neurological: Denies Anxiety, Weakness Hematologic/Lymphatic: No Symptoms Reported All Other Systems Reviewed Negative Unless Noted: Yes Past Fansslc-Hvnbfb-Kbpehy Hx Patient Social History Alcohol Use: Denies Use (Drink smoke or drugs) Recreational Drug Use: No Smoking Status: Former Smoker Former Smoker, Quit: Sep 02, 1977 Immunizations Up To Date Date of Pneumonia Vaccine: Aug 26, 2004 Date of Influenza Vaccine: Apr 25, 2017 Seasonal Allergies Seasonal Allergies: No Surgeries History of Surgeries: Yes (COLONOSCOPY) Surgeries: Orthopedic Respiratory History of Respiratory Disorde: Yes Respiratory Disorders: Pulmonary Embolism Cardiovascular History of Cardiac Disorders: Yes Cardiac Disorders: Hypertension, Peripheral Vascular Neurological History of Neurological Disord: Yes (essential tremor) Reproductive System Hx Reproductive Disorders: No Gastrointestinal History of Gastrointestinal Di: Yes Gastrointestinal Disorders: Chronic Diarrhea, Polyps Musculoskeletal History of Musculoskeletal Dis: Yes (congenital hip deformity) Endocrine History of Endocrine Disorders: No HEENT History of HEENT Disorders: No Cancer History of Cancer: No Psychosocial History of Psychiatric Problem: No Integumentary History of Skin or Integumenta: No Blood Transfusions History of Blood Disorders: No Adverse Reaction to a Blood Tr: No Reviewed Nursing Assessment Reviewed/Agree w Nursing PMH: Yes Family Medical History Significant Family History: Heart Disease, COPD Family Medial History: FH: COPD (chronic obstructive pulmonary disease) 19 MOTHER G8 SISTER Physical Exam Vital Signs Vital Signs - First Documented 09/12/17 09:45 Temp 98.1 Pulse 68 Resp 18 B/P (MAP) 142/90 (107) Pulse Ox 96 O2 Delivery Room Air Capillary Refill : General Appearance: WD/WN, Cachetic HEENT: PERRL/EOMI, Pharynx Normal Neck: Non Tender, Supple Respiratory: Lungs Clear, Normal Breath Sounds Cardiovascular: Regular Rate, Rhythm, No Murmur Gastrointestinal: Non Tender, Soft, Distended, No Guarding, No Hepatomegaly, No Rebound Back: Normal Inspection, No CVA Tenderness, No Vertebral Tenderness Extremity: Pedal Edema (2+ to the mid tibia bilaterally), Swelling (right hand and distal arm) Neurologic/Psychiatric: Alert, Oriented x3 Skin: Warm/Dry, Other (redness, tenderness and swelling noted to the right arm from the hand up to the midforearm. Does have lesions with small ulcers to the lateral aspect of the lower leg swelling and redness. Does have skin breakdown to the sacrum and coccyx area between the buttocks and to the lower part of the scrotum consistent with stage I/stage II decubiti.) Focused Exam Evaluation Lactate Level Laboratory Tests 09/12/17 10:47: Lactic Acid Level 1.82 Lactic Acid Level Laboratory Tests Test 09/12/17 10:47 Lactic Acid Level 1.82 MMOL/L (0.50-2.00) Progress/Results/Core Measures Suspected Sepsis SIRS Temperature: Pulse: Respiratory Rate: Laboratory Tests 09/12/17 09:57: White Blood Count 13.0H Blood Pressure / Mean: Laboratory Tests 09/12/17 10:47: Lactic Acid Level 1.82 Laboratory Tests 09/12/17 09:57: Platelet Count 220 09/12/17 10:47: Creatinine 0.97, INR Comment 1.4, Total Bilirubin 1.1H Results/Orders Lab Results Laboratory Tests Test 09/12/17 09:57 09/12/17 10:19 09/12/17 10:47 Range/Units White Blood Count 13.0 H 4.3-11.0 10^3/uL Red Blood Count 5.12 4.35-5.85 10^6/uL Hemoglobin 16.0 13.3-17.7 G/DL Hematocrit 47 40-54 % Mean Corpuscular Volume 92 80-99 FL Mean Corpuscular Hemoglobin 31 25-34 PG Mean Corpuscular Hemoglobin Concent 34 32-36 G/DL Red Cell Distribution Width 15.4 H 10.0-14.5 % Platelet Count 220 130-400 10^3/uL Mean Platelet Volume 11.2 H 7.4-10.4 FL Neutrophils (%) (Auto) 84 H 42-75 % Lymphocytes (%) (Auto) 6 L 12-44 % Monocytes (%) (Auto) 9 0-12 % Eosinophils (%) (Auto) 1 0-10 % Basophils (%) (Auto) 0 0-10 % Neutrophils # (Auto) 11.0 H 1.8-7.8 X 10^3 Lymphocytes # (Auto) 0.8 L 1.0-4.0 X 10^3 Monocytes # (Auto) 1.1 H 0.0-1.0 X 10^3 Eosinophils # (Auto) 0.1 0.0-0.3 10^3/uL Basophils # (Auto) 0.0 0.0-0.1 10^3/uL Neutrophils % (Manual) 91 % Lymphocytes % (Manual) 5 % Monocytes % (Manual) 4 % Eosinophils % (Manual) 0 % Basophils % (Manual) 0 % Band Neutrophils 0 % Blood Morphology Comment NORMAL Urine Color YELLOW Urine Clarity CLEAR Urine pH 6 5-9 Urine Specific Bruce 1.020 1.016-1.022 Urine Protein 1+ H NEGATIVE Urine Glucose (UA) NEGATIVE NEGATIVE Urine Ketones NEGATIVE NEGATIVE Urine Nitrite NEGATIVE NEGATIVE Urine Bilirubin NEGATIVE NEGATIVE Urine Urobilinogen NORMAL NORMAL MG/DL Urine Leukocyte Esterase NEGATIVE NEGATIVE Urine RBC (Auto) NEGATIVE NEGATIVE Urine RBC NONE /HPF Urine WBC NONE /HPF Urine Squamous Epithelial Cells NONE /HPF Urine Crystals NONE /LPF Urine Bacteria NEGATIVE /HPF Urine Casts NONE /LPF Urine Mucus NEGATIVE /LPF Urine Culture Indicated NO Prothrombin Time 16.8 H 12.2-14.7 SEC INR Comment 1.4 0.8-1.4 Activated Partial Thromboplast Time 37 H 24-35 SEC Sodium Level 140 135-145 MMOL/L Potassium Level 3.5 L 3.6-5.0 MMOL/L Chloride Level 108 H 98-107 MMOL/L Carbon Dioxide Level 23 21-32 MMOL/L Anion Gap 9 5-14 MMOL/L Blood Urea Nitrogen 23 H 7-18 MG/DL Creatinine 0.97 0.60-1.30 MG/DL Estimat Glomerular Filtration Rate > 60 BUN/Creatinine Ratio 24 Glucose Level 103 70-105 MG/DL Lactic Acid Level 1.82 0.50-2.00 MMOL/L Calcium Level 8.9 8.5-10.1 MG/DL Total Bilirubin 1.1 H 0.1-1.0 MG/DL Aspartate Amino Transf (AST/SGOT) 17 5-34 U/L Alanine Aminotransferase (ALT/SGPT) 24 0-55 U/L Alkaline Phosphatase 69 40-136 U/L Total Protein 6.6 6.4-8.2 GM/DL Albumin 3.5 3.2-4.5 GM/DL My Orders Orders - KALISPEL,STEVEI D MD Cbc With Automated Diff (09/12/17 09:57) Comprehensive Metabolic Panel (09/12/17 09:57) Lactic Acid Analyzer (09/12/17 09:57) Blood Culture (09/12/17 09:57) Sputum Culture (09/12/17 09:57) Ua Culture If Indicated (09/12/17 09:57) Protime With Inr (09/12/17 09:57) Partial Thromboplastin Time (09/12/17 09:57) Chest 1 View, Ap/Pa Only (09/12/17 09:57) O2 (09/12/17 09:57) Vital Signs Adult Sepsis Patie Q1H (09/12/17 09:57) Remove Rings In Anticipation O (09/12/17 09:57) Saline Lock/Iv-Start (09/12/17 09:57) Ns Iv 1000 Ml (Sodium Chloride 0.9%) (09/12/17 09:57) Catheter(Urinary) Insert & Ass 03,15 (09/12/17 09:57) Manual Differential (09/12/17 09:57) Lidocaine 2% (Urojet) (Xylocaine Urojet) (09/12/17 10:10) Fentanyl Injection (Sublimaze Injection (09/12/17 10:12) Ceftriaxone Injection (Rocephin Injectio (09/12/17 11:45) General/Regular (09/12/17 Lunch) Ketorolac Injection (Toradol Injection) (09/12/17 13:59) Ketorolac Injection (Toradol Injection) (09/12/17 13:58) Prednisone Tablet (Deltasone Tablet) (09/12/17 14:17) Medications Given in ED Current Medications Medications Dose Ordered Sig/Jayne Route Start Time Stop Time Status Last Admin Dose Admin Ceftriaxone Sodium 1000 mg/ Sodium Chloride 100 ml @ 200 mls/hr ONCE ONCE IV 09/12/17 11:45 09/12/17 12:14 DC 09/12/17 11:51 200 MLS/HR Fentanyl Citrate 100 mcg STK-MED ONCE .ROUTE 09/12/17 10:12 09/12/17 10:15 DC 09/12/17 10:21 100 MCG Lidocaine HCl 10 ml STK-MED ONCE .ROUTE 09/12/17 10:10 3/9/18 10:13 DC 09/12/17 10:21 10 ML Prednisone 20 mg STK-MED ONCE .ROUTE 09/12/17 14:17 09/12/17 14:20 DC 09/12/17 14:21 40 MG Vital Signs/I&O Vital Sign - Last 12Hours 09/12/17 09:45 Temp 98.1 Pulse 68 Resp 18 B/P (MAP) 142/90 (107) Pulse Ox 96 O2 Delivery Room Air Capillary Refill : Progress Note : Progress Note Seen and evaluated. IV, labs, chest x-ray, UA Higgins catheter placed. Normal saline 1 L bolus. Higgins placed for accurate I nose and due to immobility. 1140 : Rocephin 1 g IV ordered. Only significant finding is that arm which again may be related to a cat bite. Patient would benefit from oral antibiotics. We will try to establish long term placement today. Monitor patient. 1230: Social work attempting placement. 1411: I have discussed the case with Dr. Juan. He believes that the arm is actually related to gout and he had elevated uric acid last week. We have long term placement with [facility] [place]. We will increase allopurinol 300 mg daily and initiate prednisone treatment for 5 days. I will write prescription for tramadol. shelter orders written by me for Dr. Juan. Patient and power of claim attorney are in agreement. Discharged to long term with return precautions. Patient and family verbalize understanding instructions and agreement with plan. Departure Impression Impression: Primary Impression: Gout attack Qualified Codes: M10.9 - Gout, unspecified Additional Impressions: Debility Decubitus ulcer Qualified Codes: L89.152 - Pressure ulcer of sacral region, stage 2 Disposition: 01 HOME, SELF-CARE Condition: Stable Departure-Patient Inst. Decision time for Depature: 14:35 Referrals: TATIANA JUAN MD (PCP/Family) Primary Care Physician Patient Instructions: Gout (DC), Skin Abrasions Add. Discharge Instructions: Take medications as directed. Follow with Dr. Juan next week for recheck and further evaluation. Return for worse pain, swelling, weakness, breathing problems, fever or other concerns as needed. Scripts Tramadol HCl (Tramadol HCl) 50 Mg Tablet 50 MG PO Q6H Y for PAIN, #45 TAB 0 Refills Prov: KALISPEL,STEVIE D MD 09/12/17 Copy Copies To 1: TATIANA JUAN MD, TIMOTHY D MD Sep 12, 2017 10:10
[2017-09-12] MEDS ORDERED: fentaNYL INJECTION 100 MCG/2 ML AMP ONE (10:12)
[2017-09-12 10:25] LABS: BILIRUBIN,URINE NEGATIVE (NEGATIVE); CLARITY,URINE CLEAR; COLOR,URINE YELLOW; GLUCOSE, URINE (UA) NEGATIVE (NEGATIVE); KETONES,URINE NEGATIVE (NEGATIVE); LEUKOCYTE ESTERASE ,URINE NEGATIVE (NEGATIVE); NITRITE,URINE NEGATIVE (NEGATIVE); PH,URINE 6 (5-9); PROTEIN,URINE 1+ (NEGATIVE); UROBILINOGEN,URINE NORMAL (NORMAL)
[2017-09-12 10:28] LABS: BAND NEUTROPHILS 0 %; BASOPHILS % (MANUAL) 0 %; EOSINOPHILS % (MANUAL) 0 %; LYMPHOCYTES % (MANUAL) 5 %; MONOCYTES % (MANUAL) 4 %; NEUTROPHILS % (MANUAL) 91 %; RBC MORPH NORMAL
[2017-09-12 10:33] LABS: BACTERIA,URINE NEGATIVE /HPF
--- NOTE | 2017-09-12 11:00 | Diagnostic Imaging Report ---
Indication: Edema. Time of exam: 10:35 AM Correlation is made with prior study 10/04/2014. Findings: The heart size is stable. There is a large hiatal hernia. No infiltrate or failure is detected. No effusion or pneumothorax is seen. Impression: Large hiatal hernia. No acute cardiopulmonary process is detected. Dictated by: Dictated on workstation # [id number]
[2017-09-12 11:05] LABS: INR 1.4 (0.8-1.4); PROTHROMBIN TIME PATIENT 16.8 SEC (12.2-14.7)
[2017-09-12 11:13] LABS: ALANINE AMINOTRANSFERASE 24 U/L (0-55); ALBUMIN 3.5 GM/DL (3.2-4.5); ALKALINE PHOSPHATASE 69 U/L (40-136); BILIRUBIN,TOTAL 1.1 MG/DL (0.1-1.0); BUN/CREATININE RATIO 24; CALCIUM 8.9 MG/DL (8.5-10.1); CARBON DIOXIDE 23 MMOL/L (21-32); CHLORIDE 108 MMOL/L (98-107); CREATININE SERUM 0.97 MG/DL (0.60-1.30); GFR ESTIMATED > 60; GLUCOSE 103 MG/DL (70-105); POTASSIUM 3.5 MMOL/L (3.6-5.0); SODIUM 140 MMOL/L (135-145); TOTAL PROTEIN 6.6 GM/DL (6.4-8.2)
[2017-09-12] MEDS ORDERED: cefTRIAXone INJECTION 1,000 MG in NS (IVPB) 100 ML IV ONE (11:45)
[2017-09-12] MEDS ORDERED: KETOROLAC 30 MG/ML VIAL ONE (13:58)
[2017-09-12] MEDS ORDERED: KETOROLAC 30 MG/ML VIAL IVP STA (13:59)
[2017-09-12] MEDS ORDERED: predniSONE 20 MG TAB ONE (14:17)
[2017-09-12] MEDS ORDERED: TRAM50TA2 PO (14:37)
[2017-09-12 14:58] VITALS: BP 142/90
== END 2017-09-12 14:58 | disposition home or self-care (01) ==
LOC: EDUNIT# 09:45 → ER 09:46
DX: M10.9 Gout, unspecified (principal); R53.81 Other malaise; L89.152 Pressure ulcer of sacral region, stage 2; I73.9 Peripheral vascular disease, unspecified; I10 Essential (primary) hypertension; Z87.19 Personal history of other diseases of the digestive system; Z86.010 Personal history of colon polyps; Z82.49 Family history of ischemic heart disease and other diseases of the circulatory system; Z79.01 Long term (current) use of anticoagulants; Z79.52 Long term (current) use of systemic steroids; Z87.891 Personal history of nicotine dependence; Z86.711 Personal history of pulmonary embolism
CPT/HCPCS: 36415; 51702; 71045; 80053; 81000; 83605; 85007; 85027; 85610; 85730; 87040